=== PATIENT | male | born 1960 | race Caucasian/White ===

== ENCOUNTER 2016-10-28 17:39 | Emergency (ER) | payer OTHER ==
[2016-10-28 18:25] VITALS: BP 163/108
[2016-10-28 21:57] LABS: Basophils % (Auto) 1.3 % (0.0-1.8); Eosinophils % (Auto) 4.7 % (0.0-4.3); Hematocrit 46.5 % (35.5-45.6); Hemoglobin 15.7 gm/dl (11.8-15.2); Mean Corpuscular HGB Conc 34 % (32-34); Mean Corpuscular Hemoglobin 30 pg (28-32); Mean Corpuscular Volume 90 fl (84-94); Platelet Count 102 K/mm3 (140-440); Red Blood Count 5.16 M/mm3 (3.65-5.03); White Blood Count 4.5 K/mm3 (4.5-11.0)
--- NOTE | 2016-10-28 22:01 | Emergency Department Report ---
HPI - General Chief Complaint: Medical Clearance Time Seen by Provider: 10/28/16 21:45 - HPI HPI: Patient is a 56-year-old male presents to the ED stating he was sent here to be medically cleared to be admitted into [facility] for residence placement. Patient denies any medical complaints other movement. Patient states he has a history of hypertension and takes his medication regularly. He denies any fever/chills/ nausea/vomiting/abdominal pain this chest pain/dizziness/headache. ED Past Medical Hx - Past Medical History Previous Medical History?: Yes Hx Hypertension: Yes Additional medical history: Pacemaker. Acid Reflux - Surgical History Past Surgical History?: No - Social History Smoking Status: Current Every Day Smoker Substance Use Type: Alcohol ED Review of Systems ROS: Stated complaint: NEEDE MED CLEARENCE Other details as noted in HPI Constitutional: denies: chills, fever Eyes: denies: eye pain, eye discharge, vision change ENT: denies: ear pain, throat pain Respiratory: denies: cough, shortness of breath, wheezing Cardiovascular: denies: chest pain, palpitations Endocrine: no symptoms reported Gastrointestinal: denies: abdominal pain, nausea, diarrhea Genitourinary: denies: urgency, dysuria Musculoskeletal: denies: back pain, joint swelling, arthralgia Skin: denies: rash, lesions Neurological: denies: headache, weakness, paresthesias Psychiatric: denies: anxiety, depression Hematological/Lymphatic: denies: easy bleeding, easy bruising Physical Exam - Physical Exam Vital Signs: Vital Signs 10/28/16 18:22 Temperature 98.0 F Pulse Rate 87 Respiratory 16 Rate Blood Pressure 163/108 O2 Sat by Pulse 99 Oximetry Physical Exam: GENERAL: Alert and oriented x3, no apparent distress, Normal Gait, atraumatic. HEAD: Head is normocephalic and a-traumatic. EYES: Extra ocular muscles are intact. Pupils are equal, round, and reactive to light and accommodation. LUNGS: Symetrical with respiration, No wheezing, no rales or crackles, CTAB. HEART: S1, S2 present, regular rate and rhythm without murmur, no rubs, no gallops. Non tender to palpation EXTREMITIES/MUSCULOSKELETAL: No cyanosis, clubbing, rash, lesions or edema. Full ROM bilaterally. UE/LE Pulses 2+ bilaterally. NEUROLOGIC: The patient is cooperative with no focal neurologic deficits. Cranial nerves II through XII are grossly intact. Normal speech. PSYCHIATRIC: Mood is congruent with affect, denies suicidal or homicidal ideations. SKIN: Warm and dry, No lesions, No ulceration or induration present. ED Course Vital Signs 10/28/16 18:22 Temperature 98.0 F Pulse Rate 87 Respiratory 16 Rate Blood Pressure 163/108 O2 Sat by Pulse 99 Oximetry ED Medical Decision Making - Lab Data Result diagrams: 10/28/16 21:34 10/28/16 21:34 - Medical Decision Making 56-year-old male presents for medical clearance evaluation ED course:Labs ordered Lab survey within normal limits Discussed with patient to follow up with her primary care physician within a week Patient is alert and active 3. Patient was given on the during the ED stay and ate without any problems Vital signs are normal patient is in no acute distress. EMS was called to transfer patient's [place] Critical care attestation.: If time is entered above; I have spent that time in minutes in the direct care of this critically ill patient, excluding procedure time. ED Disposition Clinical Impression: Thrombocytopenia, Hyperglycemia, unspecified Disposition: [id number] ANOTHER TYPE HLTHCARE Is pt being admited?: No Does the pt Need Aspirin: No Condition: Stable Instructions: Low Fat Diet (ED), Regular Diet (ED) Additional Instructions: You were medically cleared to be sent to [facility] Take your medications as prescribed by her primary care physician. Follow-up which her primary care physician within a week Referrals: PRIMARY MD HERBERT [Primary Care Provider] - 3-5 Days [facility] [Outside] - 3-5 Days [facility] [Outside] - 3-5 Days Time of Disposition: 23:20
[2016-10-28 22:23] LABS: Chloride 104.7 mmol/L (98-107); Glucose 150 mg/dL (75-100); Potassium 4.2 mmol/L (3.6-5.0); Sodium 144 mmol/L (137-145)
[2016-10-28 22:41] LABS: Urine Drugs of Abuse Note Disclamer
[2016-10-28 22:54] LABS: Bilirubin,Urine NEG (Negative); Blood,Urine NEG (Negative); Ketones,Urine NEG (Negative); Leukocyte Esterase,Urine NEG (Negative); Mucus,Urine FEW /HPF; Nitrite,Urine NEG (Negative); Protein,Urine <15 mg/dL mg/dL (Negative); Urobilinogen,Urine < 2.0 mg/dL (<2.0)
[2016-10-28 22:54] LABS: Anion Gap 20 mmol/L; BUN/Creatinine Ratio 25.71; Blood Urea Nitrogen 18 mg/dL (9-20); Calcium 8.9 mg/dL (8.4-10.2); Carbon Dioxide 24 mmol/L (22-30)
== END 2016-10-28 23:30 | disposition other institution (70) ==
LOC: ED 17:39
DX: R73.9 Hyperglycemia, unspecified (principal); Z95.818 Presence of other cardiac implants and grafts; I10 Essential (primary) hypertension; K21.9 Gastro-esophageal reflux disease without esophagitis; F17.200 Nicotine dependence, unspecified, uncomplicated
CPT/HCPCS: 36415; 80048; 80307; 81001; 85025; 99285; G0480; 80320